=== PATIENT | female | born 2000 | race Caucasian/White ===

== ENCOUNTER 2019-03-18 01:29 | Emergency (ER) | payer OTHER ==
[~2019-03-18] VITALS: Ht 167.6 cm; Wt 51.7 kg
[2019-03-18 01:45] VITALS: BP 125/84
--- NOTE | 2019-03-18 02:05 | NUR ---
patient to room in [facility]. Reports having hives on tuesday which have resolved but continues to feel itchy. Also has right ear pain. Reports N/V since tuesday. Pending provider evaluation
[2019-03-18] MEDS ORDERED: FAMOTIDINE 20 MG TABLET ONE (02:29)
[2019-03-18] MEDS ORDERED: ONDANSETRON ODT 4 MG ONE (02:30)
[2019-03-18] MEDS ORDERED: ACETAMINOPHEN 500 MG TABLET ONE (02:30)
[2019-03-18] MEDS ORDERED: FAMOTIDINE 20 MG TABLET PO ONE (02:30)
[2019-03-18] MEDS ORDERED: ONDANSETRON ODT 4 MG PO ONE (02:30)
[2019-03-18] MEDS ORDERED: ACETAMINOPHEN 500 MG TABLET PO ONE (02:30)
[2019-03-18 03:05] LABS: HCG UR SG 1.016 (1.003-1.030); MICROSCOPIC AUTO
[2019-03-18 03:07] LABS: CULTURE INDICATED? YES
--- NOTE | 2019-03-18 03:45 | NUR ---
Patient discharged home, discharge instructions provided all questions and concerns addressed. Left with father of patient, ambulatory with steady gait reports wanting a burger denies Nausea at this time. All belongings left with patient
== END 2019-03-18 03:48 | disposition home or self-care (01) ==
LOC: ED 03:25
DX: B34.9 Viral infection, unspecified (principal); R11.2 Nausea with vomiting, unspecified
CPT/HCPCS: 81001; 81025; 87086; 99284; Q0162

== ENCOUNTER 2020-10-03 11:55 | Outpatient (CLI) | payer MEDICAID ==
[~2020-10-03] VITALS: Ht 160 cm; Wt 62.7 kg
[~2020-10-03 11:55] MED LIST: PREN1TAB60 PO
== END 2020-10-03 12:50 | disposition home or self-care (01) ==
LOC: LDOP 11:55
PROVIDERS: ATTEND Obstetrics & Gynecology Maternal & Fetal Medicine
DX: O42.92 Full-term premature rupture of membranes, unspecified as to length of time between rupture and onset of labor (principal); Z3A.37 37 weeks gestation of pregnancy
CPT/HCPCS: 59025; 84112